=== PATIENT | female | born 1945 | race Caucasian/White ===

== ENCOUNTER 2024-10-19 08:21 | Emergency (ER) | payer OTHER ==
[~2024-10-19] VITALS: Ht 157.5 cm; Wt 73.0 kg
[2024-10-19] MEDS ORDERED: HYZAAR 100-251 EACH PO (08:38)
[2024-10-19] MEDS ORDERED: LAMICTAL200 M1 PO (08:38)
[2024-10-19] MEDS ORDERED: INDERAL LA80 MG PO (08:38)
[2024-10-19] MEDS ORDERED: FAMOTIDINE/PF 20 MG in 0.9 % SODIUM CHLORIDE 8 ML IV PUSH STA (09:04)
[2024-10-19] MEDS ORDERED: FAMOTIDINE/PF 20 MG/2 ML VIAL ONE (09:09)
[2024-10-19] MEDS ORDERED: PIPERACILLIN/TAZOBACTAM SODIUM 3.375 GM VIAL IV ONE ×2 (09:09→09:15)
[2024-10-19] MEDS ORDERED: 0.9 % SODIUM CHLORIDE 1,000 ML IV SCH (09:15)
[2024-10-19] MEDS ORDERED: MORPHINE SULFATE 4 MG/ML VIAL IV ONE (09:15)
[2024-10-19 09:28] LABS: HEMATOCRIT 39.5 % (36.0-45.00); HEMOGLOBIN 13.1 g/dL (12.0-15.00); MEAN CELL VOLUME 90.8 fL (80.00-100.00); MEAN CORPUSCULAR HEMOGLOBIN 30.1 pg (27.00-32.0); MEAN CORPUSCULAR HGB CONC 33.1 g/dl (32.0-36.0); PLATELET COUNT 183 K/uL (150-450); RED BLOOD COUNT 4.35 M/uL (4.00-6.00)
[2024-10-19 09:53] LABS: ALBUMIN 3.2 gm/dL (3.4-5.0); BILIRUBIN TOTAL 0.92 mg/dL (0.3-1.2); CALCIUM 8.9 mg/dL (8.5-10.1); CREATININE SERUM 1.23 mg/dL (0.55-1.02); GFR 42.34; GLOBULINA 4.1 G/DL (2.4-3.5); POTASSIUM 3.76 mEq/L (3.5-5.1); TOTAL PROTEIN 7.3 gm/dL (6.4-8.2)
[2024-10-19] MEDS ORDERED: AMOX1TAB5 PO (12:08)
[2024-10-19] MEDS ORDERED: METRONIDAZOLE500 MG PO (12:08)
[2024-10-19] MEDS ORDERED: PROTONIX40 MG PO (12:08)
[2024-10-19] MEDS ORDERED: LEVSIN/SL0.125 MG SL (12:08)
== END 2024-10-19 12:28 | disposition home or self-care (01) ==
LOC: ER 08:22
PROVIDERS: General Practice
DX: K57.92 Diverticulitis of intestine, part unspecified, without perforation or abscess without bleeding (principal); R10.32 Left lower quadrant pain; R10.9 Unspecified abdominal pain; I10 Essential (primary) hypertension; E11.9 Type 2 diabetes mellitus without complications
CPT/HCPCS: 36415; 74176; 96365; 96366; 99284; J2270; J2543 ×2; J3490; J7030